=== PATIENT | female | born 1950 | race Caucasian/White ===

== ENCOUNTER 2020-07-17 14:51 | Outpatient (CLI) | payer MEDICARE, OTHER | END 2020-07-17 23:59 | disposition home or self-care (01) | LOC: CARD DIAG 14:51 | PROVIDERS: ATTEND Nurse Practitioner Family | DX: I08.0 Rheumatic disorders of both mitral and aortic valves (principal) | CPT/HCPCS: 93306 ==

== ENCOUNTER → 2020-08-04 | Day surgery (SDC) | payer MEDICARE, OTHER ==
[~2020-08-04] VITALS: Ht 154.9 cm; Wt 86.6 kg
[~2020-08-04] MED LIST: APIX5TAB3 PO; ENOX40SY7 SQ; HYDR12.55 PO; INSU100I8; INSU200I4 SQ; LOSA100T57 PO; NIFE-33 PO; SEMA1PEN SQ; SIMV10TA98 PO; iohexol 350MG/ML 100ml bottle IV ONE; sodium bicarbonate (8.4%) inj. 150 MEQ in dextrose 5%-water 1,000 ML IV SCH
[2020-08-04 09:18] VITALS: BP 123/63
--- NOTE | 2020-08-04 13:10 | NUR ---
Pt transferred to ER via WC with all belongings. Pt alert, oriented & in no acute distress at time of transfer.
== END | disposition home or self-care (01) ==
LOC: SSTAY O 08:01 → EDSTATUS 09:00
PROVIDERS: ATTEND Nurse Practitioner Family
DX: I82.502 Chronic embolism and thrombosis of unspecified deep veins of left lower extremity (principal); I10 Essential (primary) hypertension; E11.9 Type 2 diabetes mellitus without complications; E78.5 Hyperlipidemia, unspecified; Z79.899 Other long term (current) drug therapy; Z88.0 Allergy status to penicillin; Z88.8 Allergy status to other drugs, medicaments and biological substances; Z79.4 Long term (current) use of insulin
CPT/HCPCS: 71275; Q9967

== ENCOUNTER → 2025-03-25 | Outpatient (CLI) | payer MEDICARE, OTHER ==
[~2025-03-25] MED LIST changes: -APIX5TAB3 PO; -HYDR12.55 PO; -LOSA100T57 PO; +LOSA100T58 PO; -iohexol 350MG/ML 100ml bottle IV ONE; -sodium bicarbonate (8.4%) inj. 150 MEQ in dextrose 5%-water 1,000 ML IV SCH
--- NOTE | 2025-03-26 14:07 | RADIOLOGY REPORT ---
CLINICAL INFORMATION: Low-back pain and right hip pain. Lumbar radiculopathy. TECHNIQUE: Multisequence multiplanar MRI images of the lumbar spine were obtained without contrast. COMPARISON: None INTERPRETATION: There is artifact due to motion and body habitus, limiting evaluation. Minimal retrol isthesis of L2 on L3. Vertebral body heights are maintained. Posterior elements are intact. No fo tamar suspicious marrow signal abnormality. Visualized spinal cord and cauda equina are within normal limits. The conus medullaris is appropriate in signal at the L1 level. Sarb-da-mjjbjirr fatty atrop hy of the paraspinal musculature in the lower lumbosacral spine. Partially visualized T2 hyperintense lesions in both kidneys, likely cysts. T12-L1: Disc desiccation with mild disc space narrowing. Central disc extrusion extending cephalad up to 1.1 cm along the dorsal aspect of the T12 vertebral body measuring up to 0.7 cm in AP dimension c ausing moderate spinal canal stenosis, closely approximating the ventral aspect of the spinal cord. N o significant neural foraminal stenosis. L1-L2: Disc desiccation. Mild diffuse disc bulge mildly indenting the ventral aspect of the thecal s ac. No significant spinal canal stenosis. Facet hypertrophy with mild bilateral neural foraminal zeeshan noses. L2-L3: Disc desiccation with moderate disc space narrowing and diffuse disc bulge superimposed on a degree of congenital spinal canal narrowing causing moderate spinal canal stenosis and effacing the l ateral recesses bilaterally. There is crowding of the cauda equina due to the spinal canal stenosis. Facet hypertrophy and encroachment of the neural foramina by the disc bulge contributes to moderate t o severe bilateral neural foraminal stenoses. Small right facet joint effusion. L3-L4: Disc desiccation with mild disc space narrowing and diffuse disc bulge superimposed on congen ital spinal canal narrowing, causing moderate spinal canal stenosis with mild crowding of the cauda e quina and effacement of the lateral recesses. Facet hypertrophy and right foraminal disc protrusion c ontributes to severe right neural foraminal stenosis. Facet hypertrophy causes moderate left neural f oraminal stenosis. Small bilateral facet joint effusions. L4-L5: Disc desiccation with mild disc space narrowing and diffuse disc bulge mildly indenting the v entral aspect of the thecal sac. No significant spinal canal stenosis. Partial effacement of the late ral recesses by the disc bulge. Facet hypertrophy and encroachment of the neural foramina by the disc bulge contributes to moderate to severe bilateral neural foraminal stenoses. Small bilateral facet j oint effusions. L5-S1: Disc desiccation. No significant disc bulge or spinal canal stenosis. Facet hypertrophy with moderate bilateral neural foraminal stenoses. IMPRESSION: 1. Degenerative disc disease and facet disease in the lumbar spine with associated spinal canal, suba rticular, and neural foraminal stenoses as detailed above. The greatest degree of spinal canal stenos is is seen at T12-L1, L2-L3, and L3-LThe greatest degree of neural foraminal stenosis is seen of the right L3-L4 neural foramen due to facet hypertrophy and right foraminal disc protrusion at this level . 2. Minimal retrolisthesis of L2 on L3. 3. There is a degree of congenital spinal canal narrowing contributing to the spinal canal stenoses d escribed above. 4. Additional findings as detailed above.
== END | disposition home or self-care (01) ==
LOC: MRI02 09:08
PROVIDERS: ATTEND Family Medicine Sports Medicine
DX: M51.16 Intervertebral disc disorders with radiculopathy, lumbar region (principal); M47.26 Other spondylosis with radiculopathy, lumbar region; M25.551 Pain in right hip; M54.50 Low back pain, unspecified; M48.07 Spinal stenosis, lumbosacral region; M53.3 Sacrococcygeal disorders, not elsewhere classified
CPT/HCPCS: 72148